=== PATIENT | female | born 1995 | race Caucasian/White ===

== ENCOUNTER 2016-09-19 18:14 | Emergency (ER) | payer OTHER ==
[~2016-09-19] VITALS: Ht 160 cm; Wt 106.0 kg
[2016-09-19 18:17] VITALS: BP 130/76; PULSE 82; RESP 15; TEMP 98.2; O2SAT 97
[2016-09-19] MEDS ORDERED: SE-NTAB3 PO (18:56)
--- NOTE | 2016-09-19 19:12 | PD ---
HPI Chief Complaint: Respiratory Symptoms Time Seen by Provider: 19:12 Travel History International Travel<30 days: No Contact w/Intl Traveler<30days: No Traveled to known affect area: No History of Present Illness HPI 21 YO 18 week female presents to the ED for evaluation of 2 day history of cough with associated dizziness. Gradual onset. She endorses two- week history of sinus congestion and minimal clear rhinorrhea. She denies fever , chills, ear pain, sore throat, smoking history, recent periods of inactivity. She endorses history of multiple episodes of bronchitis. She denies abdominal pain, vaginal bleeding, dysuria. She is followed by Dr. Jaret Alonzo, HAND[employer]. [facility] Past Medical History Respiratory: Yes (BRONCHITIS) Tetanus Vaccination: > 5 Years ?: LMP: 05/14/16 Social History Alcohol Use: No Tobacco Use: No (recently quit) Substance Use: No Allergies-Medications (Allergen,Severity, Reaction): Coded Allergies: No Known Allergies (Unverified , 09/19/16) Reported Meds & Prescriptions Reported Meds & Active Scripts Active Prednisone 20 Mg Tab 40 Mg PO DAILY Take 40 mg (2 tablets) daily for 5 days Proair Hfa 8.5 GM Inh (Albuterol Sulfate) 90 Mcg/Act Aer 2 Puff INH Q6H PRN 108 mcg/actuation Reported Se-Alex 19 29-1 mg ( Vit W/ Docusate-Fe Fu) 1 Tab Tab 1 Tab PO DAILY Review of Systems Except as stated in HPI: all other systems reviewed are Neg Physical Exam Narrative GENERAL: Well-nourished, well-developed obese white female in no acute distress.. SKIN: Focused skin assessment warm/dry. HEAD: Normocephalic. EYES: No scleral icterus. No injection or drainage. NECK: Supple, trachea midline. No JVD or lymphadenopathy. CARDIOVASCULAR: Regular rate and rhythm without murmurs, gallops, or rubs. RESPIRATORY: Diffuse and expiratory wheezes in bilateral lung bah. No accessory muscle use. GASTROINTESTINAL: Abdomen soft, non-tender, nondistended. Active bowel sounds. MUSCULOSKELETAL: No cyanosis, or edema. Homans sign negative bilaterally. BACK: Nontender without obvious deformity. No CVA tenderness. Data Data Last Documented VS Vital Signs Date Time Temp Pulse Resp B/P Pulse Ox O2 Delivery O2 Flow Rate FiO2 09/19/16 18:49 96 Nasal Cannula 09/19/16 18:17 98.2 82 15 130/76 Orders Prednisone (Deltasone) (09/19/16 19:45) Albuterol-Ipratropium Neb (Duoneb Neb) (09/19/16 19:45) [facility] Medical Decision Making Medical Screen Exam Complete: Yes Emergency Medical Condition: Yes Differential Diagnosis Viral syndrome versus reactive airway disease versus pneumonia versus less likely PE versus other Narrative Course 21 YO 18 week female presents to the ED for evaluation of 2 day history of cough with associated dizziness. Gradual onset. She endorses two- week history of sinus congestion and minimal clear rhinorrhea. She denies fever , chills, ear pain, sore throat, abdominal pain, vaginal bleeding, dysuria. She is followed by Dr. Jaret Alonzo, HANDLE AS[employer]BLER. Vitals reviewed. ENT exam is unremarkable. There are diffuse end expiratory wheezes in the bilateral lung bah. Abdomen is soft and nontender. Hohmann sign negative bilaterally. He was administered 40 mg prednisone by mouth and do a nebs 2. She reports subjective improvement in her breathing. She was prescribed 40 mg prednisone 5 days and a Pro Air rescue inhaler. Instructed take the medication as prescribed, follow up with Dr. Alonzo. We discussed reasons to return to the ED. She indicated understanding of instructions and is agreeable to the care plan. She stable and discharged home. Diagnosis Primary Impression: Reactive airway disease Qualified Code: J45.20 - Reactive airway disease, mild intermittent, uncomplicated Referrals: Jaret Warner MD Patient Instructions: General Instructions, Reactive Airways Disease (ED) Additional Instructions: Rest, hydrate. Take prednisone as prescribed. Rescue inhaler as needed for episodes of shortness of breath. Follow-up with Dr. Alonzo next week. Return to the ED for any urgent or emergent medical condition. Med/Other Pt SpecificInfo: Prescription(s) given Scripts Prednisone 20 Mg Tab40 Mg PO DAILY #10 TAB Ref 0 Take 40 mg (2 tablets) daily for 5 days Prov:Mariam Carver MD 09/19/16 Albuterol 8.5 GM Inh (Proair Hfa 8.5 GM Inh)90 Mcg/Act Aer2 Puff INH Q6H PRN ( SHORTNESS OF BREATH) #1 INHALER Ref 0 108 mcg/actuation Prov:Mariam Carver MD 09/19/16 Disposition: 01 DISCHARGE HOME Condition: Stable Jovanna Quinn Sep 19, 2016 19:12
--- NOTE | 2016-09-19 19:36 | PD ---
Data Data Last Documented VS Vital Signs Date Time Temp Pulse Resp B/P Pulse Ox O2 Delivery O2 Flow Rate FiO2 09/19/16 18:49 96 Nasal Cannula 09/19/16 18:17 98.2 82 15 130/76 Orders Prednisone (Deltasone) (09/19/16 19:45) Duoneb Q 15 Min X 2 Doses (09/19/16 19:45) MDM Supervised Visit with MARQUISE: Yes Narrative Course The history, exam, and medical decision-making in the associated midlevel provider note were completed with my assistance. I reviewed and agree with the findings presented. I attest that I had a [id number] encounter with the patient on the same day, and personally performed and documented my assessment and findings in the medical record. *My assessment and Findings: This is a 21-year-old female who presents the emergency department who is 18 weeks coming in with rhinorrhea and cough with some difficulty breathing. She is diffusely wheezing on exam consistent with bronchitis. I suspect she has underlying diagnosis of asthma. Patient will be treated with bronchodilators and prednisone. Otherwise I think she appears well and can be discharged home. Mariam Carver MD Sep 19, 2016 19:36
[2016-09-19] MEDS ORDERED: predniSONE 20 MG TAB PO ONE (19:45)
[2016-09-19] MEDS ORDERED: ALBUAER3 INH (19:49)
[2016-09-19] MEDS ORDERED: PRED20 PO (19:49)
[2016-09-19] MEDS: RESP: ALBUTEROL 2.5 MG/IPRATROPIUM 0.5 MG NEB (SCH) INH (20:09)
== END 2016-09-19 20:28 | disposition home or self-care (01) ==
LOC: NEPD 18:14
DX: O99.511 Diseases of the respiratory system complicating pregnancy, first trimester (principal); J45.909 Unspecified asthma, uncomplicated; J34.89 Other specified disorders of nose and nasal sinuses; R05 Cough; R42 Dizziness and giddiness; Z3A.18 18 weeks gestation of pregnancy
CPT/HCPCS: 94640; 94664; 99284; J7512

== ENCOUNTER 2017-01-28 19:02 | Inpatient (IN) | payer OTHER ==
[~2017-01-28] VITALS: Ht 162.6 cm; Wt 119.3 kg
[~2017-01-28 19:02] MED LIST: ALBUAER3 INH; PRED20 PO; SE-NTAB3 PO
--- NOTE | 2017-01-28 20:04 | PD ---
HPI Chief Complaint LOF Date Seen: Jan 28, 2017 Time Seen: 19:57 Travel History International Travel<30 Days: No Contact w/Intl Traveler<30Days: No Known Affected Area: No History of Present Illness HPI 21y/o G1 @ 37.0wks. Was seen today in clinic by Dr. Berg and was 1cm dilated. She presents with reports of SROM at 17:30, clear fluid. She denies any ctx, or VB. +FM. Weeks Gestation: 37 Para: 0 : 1 Last Menstrual Period: Jan 28, 2017 History Past Medical History Narrative Medical asthma (no h/o hospitalizations or intubations, last used rescue inhaler 2m ago) Obstetric History Obstetric History 1. current Past Surgical History Surgical History: No Previous Surgery Family History Narrative Family History mother has DM father of liver cancer ([place]) Social History Alcohol Use: No Tobacco Use: Yes (quit when she found out she was ) Substance Abuse: No Allergies-Medications (Allergen,Severity, Reaction): Coded Allergies: No Known Allergies (Unverified , 09/19/16) Home Meds Active Scripts Albuterol 8.5 GM Inh (Proair Hfa 8.5 GM Inh) 90 Mcg/Act Aer, 2 PUFF INH Q6H Y for SHORTNESS OF BREATH, #1 INHALER 0 Refills 108 mcg/actuation Prov:Mariam Carver MD 09/19/16 Reported Medications Vit W/ Docusate-Fe Fu (Se-Alex 19 29-1 mg) 1 Tab Tab, 1 TAB PO DAILY for Nutritional Supplement, TAB 0 Refills 09/19/16 Discontinued Scripts Prednisone (Prednisone) 20 Mg Tab, 40 MG PO DAILY, #10 TAB 0 Refills Take 40 mg (2 tablets) daily for 5 days Prov:Mariam Carver MD 09/19/16 Review of Systems Except as stated in HPI: all other systems reviewed are Neg Physical Exam Narrative GENERAL: Well-nourished, well-developed patient. SKIN: Warm and dry. HEAD: Normocephalic and atraumatic. EYES: No scleral icterus. No injection or drainage. ENT: No nasal drainage noted. Mucous membranes pink. Airway patent. NECK: Supple, trachea midline. No JVD. ABDOMEN/GI: Abdomen soft, non-tender, gravid EXTREMITIES: No cyanosis or edema. NEUROLOGICAL: Awake and alert. Motor and sensory grossly within normal limits. FHTs: 135, +accels, no decels, moderate variability, reactive TOCO: single ctx seen CVX: deferred; 1cm dilated today in clinic Data Data Vital Signs Reviewed: Yes Orders Orders Vital Signs (Adult) .ON ADMISSION (01/28/17 19:47) ^ Labor Status (01/28/17 19:47) ^ Non Stress Test (01/28/17 19:47) Pamg-1 Test .ONCE (01/28/17 19:47) Group B Strep: Negative MDM Plan 21y/o G1 @ 37.0wks with PROM. -- admit to L&D -- GBS neg -- per Dr. Berg, initiate pitocin 2x2 starting at 0500 tmw morning, CLD, CEFM Courtesy orders placed. Dr. Berg to assume care of the pt. Diagnosis Diagnosis: Primary Impression: 37 weeks gestation of Additional Impressions: PROM (premature rupture of membranes) Asthma Obesity Madison Castle MD Jan 28, 2017 20:04
[2017-01-28] MEDS ORDERED: LACTATED RINGER'S 1000 ML INJ 1,000 ML IV PRN (20:08)
[2017-01-28] MEDS ORDERED: OXYTOCIN 30 UNITS-500ML PREMIX 500 ML IV ONE (20:15)
[2017-01-28] MEDS ORDERED: CITRIC ACID-SODIUM CITRATE LIQ 30 ML UDC PO SCH (20:15)
[2017-01-28] MEDS ORDERED: ONDANSETRON HCL 4 MG/2 ML VIAL IV PUSH PRN (20:15)
[2017-01-28] MEDS ORDERED: LIDOCAINE HCL 1% 50 ML VIAL INFIL PRN (20:15)
[2017-01-28] MEDS ORDERED: MINERAL OIL 10 ML VIAL TOPICAL PRN (20:15)
[2017-01-28] MEDS ORDERED: SODIUM CHLORID 0.9% 500 ML INJ 500 ML IV PRN (20:15)
[2017-01-28] MEDS ORDERED: LIDOCAINE HCL 1% 50 ML VIAL I-DERMAL PRN (20:15)
[2017-01-28] MEDS ORDERED: SODIUM CHLOR 0.9% 1000 ML INJ 1,000 ML IV PRN (20:28)
[2017-01-28 20:45] LABS: BILIRUBIN, URINE NEG (NEG); BLOOD, URINE NEG (NEG); GLUCOSE,URINE NEG (NEG); KETONE, URINE NEG (NEG); MUCUS URINE FEW /lpf (OCC); NITRITE,URINE NEG (NEG); PH, URINE 6.5 (5.0-8.5); SQUAMOUS EPITHELIAL CELL URINE <1 /hpf (0-5); URINE COLOR YELLOW (YELLW/STRAW); URINE LEUKOCYTE ESTERASE TRACE (NEG)
[2017-01-28 21:18] VITALS: BP 123/64; PULSE 88; RESP 16
[2017-01-28 21:30] VITALS: TEMP 98
[2017-01-28 23:00] VITALS: TEMP 98.1
[2017-01-29] VITALS (92 sets, daily range): BP systolic 97–143; BP diastolic 45–91; PULSE 79–123; RESP 14–18; TEMP 98–100.4; O2SAT 98
[2017-01-29 00:54] LABS: AUTOMATED NEUTROPHIL # 8.2 TH/MM3 (1.8-7.7); BASOPHIL # 0.1 TH/MM3 (0-0.2); BASOPHIL % 0.8 % (0.0-2.0); EOSINOPHIL # 0.1 TH/MM3 (0-0.4); EOSINOPHIL % 0.7 % (0.0-4.0); HEMATOCRIT 31.3 % (35.0-46.0); HEMOGLOBIN 10.6 GM/DL (11.6-15.3); LYMPH % 16.8 % (9.0-44.0); LYMPHOCYTE # 1.9 TH/MM3 (1.0-4.8); MEAN CELL VOLUME 83.2 FL (80.0-100.0); MEAN CORPUSCULAR HEMOGLOBIN 28.1 PG (27.0-34.0); MEAN CORPUSCULAR HGB CONC 33.8 % (32.0-36.0); MEAN PLATELET VOLUME 8.7 FL (7.0-11.0); MONO % 7.6 % (0.0-8.0); MONOCYTE # 0.9 TH/MM3 (0-0.9); NEUT % 74.1 % (16.0-70.0); PLATELET COUNT 209 TH/MM3 (150-450); RED BLOOD COUNT 3.77 MIL/MM3 (4.00-5.30); RED CELL DISTRIBUTION WIDTH 14.6 % (11.6-17.2); WHITE BLOOD COUNT 11.1 TH/MM3 (4.0-11.0)
[2017-01-29] MEDS: LACTATED RINGER'S 1000 ML INJ 1,000 ML IV SCH ×2 (01:08→20:08)
[2017-01-29] MEDS ORDERED: OXYTOCIN 30 UNITS-500ML PREMIX 500 ML IV SCH ×2 (05:00→20:00)
[2017-01-29] MEDS ORDERED: ePHEDrine/NS 25 MG/5 ML SYR ONE (12:46)
[2017-01-29] MEDS ORDERED: fentaNYL 2MCG-BUPIV 0.125% INJ 100 ML ONE (12:53)
[2017-01-29] MEDS ORDERED: DO NOT ADMINISTER ANTICOAGULANTS PRN (14:15)
[2017-01-29] MEDS ORDERED: ePHEDrine/NS 25 MG/5 ML SYR IV PUSH PRN (14:15)
[2017-01-29] MEDS ORDERED: NO SYSTEM NARCOTICS PRN (14:15)
[2017-01-29] MEDS ORDERED: fentaNYL 2MCG-BUPIV 0.125% 100 ML EPIDURAL SCH (14:15)
[2017-01-29] MEDS ORDERED: MEASLES, MUMPS, RUBELLA VACCINE 0.5 ML VIAL SQ ONE (16:00)
[2017-01-29] MEDS ORDERED: DIPHTH/TETANUS/ACEL PERTUSSIS (BOOSTER) 0.5 ML VIAL/PFS IM ONE (16:00)
[2017-01-29] MEDS ORDERED: DOCUSATE SODIUM 50 MG/SENNA 8.6 MG TAB PO PRN (20:00)
[2017-01-29] MEDS ORDERED: ONDANSETRON ODT 4 MG TAB PO PRN (20:00)
[2017-01-29] MEDS ORDERED: ZOLPIDEM TARTRATE 5 MG TAB PO PRN (20:00)
[2017-01-29] MEDS ORDERED: SODIUM CHLORIDE 0.9% FLUSH 10 ML FLUSH IV FLUSH PRN (20:00)
[2017-01-29] MEDS ORDERED: WITCH HAZEL 50%/GLYCERIN 12.5% 40 PAD JAR TOPICAL PRN (20:00)
[2017-01-29] MEDS ORDERED: BENZOCAINE 20% TOPICAL SPRAY 60 ML CAN TOPICAL PRN (20:00)
[2017-01-29] MEDS ORDERED: OXYTOCIN 10 UNIT/ML AMP XX PRN (20:00)
[2017-01-29] MEDS ORDERED: ALUMINUM/MAGNESIUM/SIMETH 30 ML CUP PO PRN (20:00)
[2017-01-29] MEDS ORDERED: oxyCODONE/ACETAMINOPHEN 5 MG/325 MG TAB PO PRN ×2 (20:00)
[2017-01-29] MEDS ORDERED: OXYTOCIN 30 UNITS-500ML PREMIX 500 ML IV ONE (20:00)
--- NOTE | 2017-01-29 20:01 | PD.OB.DELI ---
Weeks gestation: 37 Gest age assessed date: Jan 28, 2017 Gest age assessed time: 20:00 Pt started active labor?: Yes Active labor start date: Jan 29, 2017 Active labor start time: 05:00 Medical induction of labor?: No Artificial rupture of membrane: No Anesthesia: Epidural Episiotomy: None Vaginal Delivery: Normal Presentation: Occiput anterior Nuchal Cord: x1 Delayed cord clamping (45 sec): Yes Infant: Female, Single Delivery date: Jan 29, 2017 Delivery time: 19:40 One Minute : 9 Five Minute : 9 Weight: 6-14 Placenta: Spontaneous delivery, Intact, 3 vessel cord Laceration: No lacerations Estimated blood loss: 300 ml Jaquan Ahmadi MD Jan 29, 2017 20:01
[2017-01-29] MEDS ORDERED: SODIUM CHLORIDE 0.9% FLUSH 10 ML FLUSH IV FLUSH SCH (21:00)
[2017-01-29] MEDS: IBUPROFEN 600 MG TAB PO PRN (21:11)
[2017-01-30] MEDS: IBUPROFEN 600 MG TAB PO PRN ×3 (06:35→19:45)
[2017-01-30 07:40] VITALS: BP 122/73; PULSE 87; RESP 18; TEMP 98.4
--- NOTE | 2017-01-30 13:04 | HHI.OB ---
Subjective Post Day: 1 Remarks pain controlled, mod lochia, +void/flatus Objective Vitals/I&O Vital Signs Date Time Temp Pulse Resp B/P (MAP) Pulse Ox O2 Delivery O2 Flow Rate FiO2 01/30/17 07:40 98.4 87 18 122/73 (89) 01/29/17 22:30 97 116/67 (83) 01/29/17 22:30 18 01/29/17 22:30 99.2 98 01/29/17 21:46 103 109/61 (77) 01/29/17 21:31 99 120/65 (83) 01/29/17 21:16 101 118/60 (79) 01/29/17 21:01 105 125/64 (84) 01/29/17 20:46 107 112/56 (74) 01/29/17 20:35 100.4 14 01/29/17 20:31 113 98/70 (79) 01/29/17 20:16 108 126/61 (82) 01/29/17 20:01 115 120/55 (76) 01/29/17 19:46 123 110/85 (93) 01/29/17 19:31 120 111/67 (82) 01/29/17 19:20 98.0 18 01/29/17 19:16 104 100/54 (69) 01/29/17 19:11 111 97/53 (68) 01/29/17 19:06 110 100/54 (69) 01/29/17 19:05 110 109/64 (79) 01/29/17 19:01 106 111/45 (67) 01/29/17 18:50 18 01/29/17 18:46 108 125/54 (77) 01/29/17 18:35 18 01/29/17 18:31 106 113/64 (80) 01/29/17 18:20 18 01/29/17 18:16 117 105/53 (70) 01/29/17 18:05 99.9 01/29/17 18:05 18 01/29/17 18:01 105 121/65 (83) 01/29/17 17:50 18 01/29/17 17:46 110 110/49 (69) 01/29/17 17:35 18 01/29/17 17:31 117 114/58 (76) 01/29/17 17:16 105 115/54 (74) 01/29/17 15:46 83 115/62 (79) 01/29/17 15:45 90 01/29/17 15:40 95 01/29/17 15:35 18 01/29/17 15:35 82 01/29/17 15:31 89 113/54 (73) 01/29/17 15:30 87 01/29/17 15:25 85 01/29/17 15:20 90 01/29/17 15:20 18 01/29/17 15:16 93 108/61 (77) 01/29/17 15:15 88 01/29/17 15:10 87 01/29/17 15:05 18 01/29/17 15:05 86 01/29/17 15:01 83 114/91 (99) 01/29/17 15:00 89 01/29/17 14:55 88 01/29/17 14:50 18 01/29/17 14:50 87 01/29/17 14:46 91 114/60 (78) 01/29/17 14:45 89 01/29/17 14:40 86 01/29/17 14:35 94 01/29/17 14:31 101 103/58 (73) 01/29/17 14:30 97 01/29/17 14:25 93 01/29/17 14:20 18 01/29/17 14:20 91 01/29/17 14:16 92 124/58 (80) 01/29/17 14:15 90 01/29/17 14:10 90 01/29/17 14:05 99 01/29/17 14:04 16 01/29/17 14:01 89 128/70 (89) 01/29/17 14:00 88 01/29/17 13:55 90 01/29/17 13:51 92 119/69 (86) 01/29/17 13:50 93 01/29/17 13:46 96 01/29/17 13:46 123/65 (84) 01/29/17 13:45 96 01/29/17 13:42 16 01/29/17 13:42 96 123/77 (92) 01/29/17 13:40 91 01/29/17 13:36 95 111/56 (74) 01/29/17 13:35 96 01/29/17 13:31 94 118/76 (90) 01/29/17 13:21 103 100/80 (87) 01/29/17 13:20 101 01/29/17 13:16 93 133/85 (101) 01/29/17 13:15 104 01/29/17 13:12 94 120/62 (81) 01/29/17 13:10 99 01/29/17 13:06 104 112/90 (97) 01/29/17 13:05 104 Objective Remarks GENERAL: Well-nourished, well-developed patient. CARDIOVASCULAR: Regular rate and rhythm without murmurs, gallops, or rubs. RESPIRATORY: Breath sounds equal bilaterally. No accessory muscle use. ABDOMEN/GI: Abdomen soft, non-tender. Fundus: Firm, non-tender at umbilicus. GENITOURINARY: Light to moderate bleeding. EXTREMITIES: No cyanosis or edema, non-tender, without signs of DVT. Medications and IVs Current Medications Medications (Trade) Dose Ordered Sig/Manas Route Start Time Stop Time Status Last Admin (Pitocin Inj) 20 units UNSCH X1 PRN XX 01/29/17 20:00 01/30/17 19:59 (NS Flush) 2 ml BID IV FLUSH 01/29/17 21:00 01/29/17 21:11 (NS Flush) 2 ml UNSCH PRN IV FLUSH 01/29/17 20:00 (Tylenol) 650 mg Q4H PRN PO 01/29/17 20:00 (Motrin) 600 mg Q6H PRN PO 01/29/17 20:00 01/30/17 06:35 (Percocet 5-325 Mg) 1 tab Q4H PRN PO 01/29/17 20:00 (Percocet 5-325 Mg) 2 tab Q4H PRN PO 01/29/17 20:00 (Americaine 20% Top Spr) 1 spray Q4H PRN TOPICAL 01/29/17 20:00 (Tucks Pads) 1 applic QID PRN TOPICAL 01/29/17 20:00 (Flora-Colace) 2 tab Q12H PRN PO 01/29/17 20:00 (Ambien) 5 mg HS PRN PO 01/29/17 20:00 (Mag-Al Plus Susp Liq) 15 ml Q8H PRN PO 01/29/17 20:00 (Zofran Odt) 4 mg Q6H PRN PO 01/29/17 20:00 Assessment/Plan Problem List: (1) Spontaneous vaginal delivery ICD Codes: O80 - Encounter for full-term uncomplicated delivery Plan: routine pp care Jaquan Ahmadi MD Jan 30, 2017 13:04
[2017-01-30 19:40] VITALS: BP 119/76; PULSE 90; RESP 17; TEMP 98.4
[2017-01-30] MEDS: ACETAMINOPHEN 325 MG TAB PO PRN (19:46)
[2017-01-31] MEDS: ACETAMINOPHEN 325 MG TAB PO PRN ×2 (06:32→12:49)
[2017-01-31] MEDS: IBUPROFEN 600 MG TAB PO PRN ×2 (06:32→12:49)
[2017-01-31 08:00] VITALS: BP 122/78; PULSE 74; RESP 18; TEMP 98.4
[2017-01-31] MEDS ORDERED: IBUP-232 PO (13:06)
--- NOTE | 2017-01-31 13:07 | HHI.DCPOC ---
Discharge Care Plan Diagnosis: (1) Spontaneous vaginal delivery Your Health Problems Are: Vaginal delivery Report Symptoms to Your Doctor -Temperature above 100.5 degrees -Redness, of incision or excessive or foul smelling drainage -Unusual pain or calf pain -Increased vaginal bleeding -Painful or difficulty urinating -Feelings of extreme sadness or anxiety after 2 weeks Goals to Promote Your Health * To prevent worsening of your condition and complications * To maintain your health at the optimal level Directions to Meet Your Goals Take your medications as prescribed Follow your dietary instruction Follow activity as directed Ensure plenty of rest for recovery Drink fluids for hydration Keep your appointments as scheduled Take your immunizations and boosters as scheduled If your symptoms worsen call your PCP, if no PCP go to Urgent Care Center or Emergency Room Smoking is Dangerous to Your Health. Avoid second hand smoke Call the 24-hour crisis hotline for domestic abuse at Jaquan Ahmadi MD Jan 31, 2017 13:07
--- NOTE | 2017-01-31 13:11 | HHI.DS ---
Admission Date Jan 28, 2017 at 20:12 Discharge Date: Jan 31, 2017 Admitting Diagnosis IUP@ 37 wks SROM, labor augmentation Diagnosis: Delivery Date: Jan 29, 2017 Vaginal Delivery: Normal : Female, Single Brief History 21y/o G1 @ 37.0wks. Was seen today in clinic by Dr. Berg and was 1cm dilated. She presents with reports of SROM at 17:30, clear fluid. She denies any ctx, or VB. +FM. Hospital Course pt presented with SROM. She was augmented with pitocin and then had an . by PPD 2, pt was voiding and passing gas and stable for d/c home. Pt Condition on Discharge: Stable Discharge Disposition: Discharge Home Discharge Instructions Diet Instructions: As Tolerated, No Restrictions Additional Diet Instructions: Drink at least 8 - 16 oz bottles of water a day Activities You Can Perform: Shower Only-No Bath, Sitz Bath Activities to Avoid: Lifting/Bending, Sexual Activity Additional Activity Instruc.: No driving until off pain medications Do not lift anything heavier than your baby in an infant carrier Jaquan Ahmadi MD Jan 31, 2017 13:11
== END 2017-01-31 17:16 | disposition home or self-care (01) | DRG 775 ==
LOC: HOBED 19:02 → H2EB 20:12 → H1EA 01-29 22:09
PROVIDERS: ADMIT Obstetrics & Gynecology; ATTEND Obstetrics & Gynecology
PROC: 10E0XZZ Delivery of Products of Conception, External Approach (ICD-10-PCS; principal; 2017-01-29)
DX: O99.52 Diseases of the respiratory system complicating childbirth (principal); Z68.42 Body mass index [BMI] 45.0-49.9, adult; O69.81X0 Labor and delivery complicated by cord around neck, without compression, not applicable or unspecified; Z37.0 Single live birth; Z3A.37 37 weeks gestation of pregnancy; O99.214 Obesity complicating childbirth; E66.9 Obesity, unspecified
CPT/HCPCS: 80307; 81001; 84112; 85025; 85461; 86850; 86900; 86901; 90384; 90707; 90715; J2405; J2590; J2790; J3010; J7120